=== PATIENT | male | born 1990 | race Hispanic/Latino ===

== ENCOUNTER 2017-05-08 08:26 | Emergency (ER) | payer OTHER ==
[2017-05-08] MEDS ORDERED: BOOSTRIX IM ONE ×2 (09:31→11:51)
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
[2017-05-08 09:42] LABS: Basophils % (Auto) 0.2 % (0.0-1.8); Eosinophils % (Auto) 0.6 % (0.0-4.3); Hematocrit 51.1 % (35.5-45.6); Hemoglobin 17.2 gm/dl (11.8-15.2); Mean Corpuscular HGB Conc 34 % (32-34); Mean Corpuscular Hemoglobin 31 pg (28-32); Mean Corpuscular Volume 92 fl (84-94); Platelet Count 252 K/mm3 (140-440); Red Blood Count 5.57 M/mm3 (3.65-5.03); Red Cell Distribution Width 13.4 % (13.2-15.2); White Blood Count 17.1 K/mm3 (4.5-11.0)
[2017-05-08 09:56] LABS: INR 0.95 (0.87-1.13)
[2017-05-08 09:57] LABS: Alanine Aminotransferase 9 units/L (7-56); Albumin 4.6 g/dL (3.9-5); Albumin/Globulin Ratio 1.5 %; Alkaline Phosphatase 71 units/L (35-129); Anion Gap 19 mmol/L; BUN/Creatinine Ratio 17; Blood Urea Nitrogen 10 mg/dL (9-20); Calcium 9.4 mg/dL (8.4-10.2); Carbon Dioxide 25 mmol/L (22-30); Chloride 101.8 mmol/L (98-107); Creatine Kinase 61 units/L (55-170); Glucose 108 mg/dL (75-100); Partial Thromboplastin Time 30.9 Sec. (24.2-36.6); Potassium 4.5 mmol/L (3.6-5.0); Sodium 141 mmol/L (137-145); Total Protein 7.6 g/dL (6.3-8.2)
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
[2017-05-08] MEDS ORDERED: TYLENOL PO ONE (12:04)
[2017-05-08] MEDS ORDERED: MOTRIN PO ONE (12:05)
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
[2017-05-08 15:32] VITALS: BP 111/74
== END 2017-05-08 15:31 | disposition home or self-care (01) ==
LOC: ED 08:26
DX: S06.0X9A Concussion with loss of consciousness of unspecified duration, initial encounter (principal); S02.609A Fracture of mandible, unspecified, initial encounter for closed fracture; F17.200 Nicotine dependence, unspecified, uncomplicated; F12.10 Cannabis abuse, uncomplicated; Y04.0XXA Assault by unarmed brawl or fight, initial encounter; Y93.89 Activity, other specified; Y92.89 Other specified places as the place of occurrence of the external cause; Y99.8 Other external cause status
CPT/HCPCS: 36415; 70450; 70486; 71010; 72125; 72170; 80053; 82550; 85025; 85610; 85730; 90471; 90715; 93005; 93010; 99285; G0480; 80320